=== PATIENT | female | born 1970 | race Hispanic/Latino ===

== ENCOUNTER 2023-07-18 16:09 | Inpatient (IN) | payer OTHER ==
[~2023-07-18] VITALS: Ht 149.9 cm; Wt 68.0 kg
[2023-07-18] MEDS ORDERED: SODIUM CHLORIDE 0.9% 1000ML 1,000 ML IV ONE (17:00)
[2023-07-18] MEDS ORDERED: SODIUM CHLORIDE 0.9% 1000ML 1,000 ML ONE ×2 (17:22→19:53)
[2023-07-18] MEDS: SODIUM CHLORIDE 0.9% 1000ML 1,000 ML IV SCH (19:52)
[2023-07-18 20:03] VITALS: BP 102/77; PULSE 92; RESP 16; TEMP 98.1; O2SAT 100
[2023-07-18 21:00] VITALS: BP 102/77; PULSE 92; RESP 16; TEMP 98.1; O2SAT 100
[2023-07-19] VITALS (9 sets, daily range): BP systolic 95–110; BP diastolic 70–82; PULSE 77–93; RESP 16–17; TEMP 97.5–98.4; O2SAT 97–100
[2023-07-19 02:10] LABS: CREATINE KINASE 540 IU/L (29-168)
[2023-07-19] MEDS: SODIUM CHLORIDE 0.9% 1000ML 1,000 ML IV SCH ×2 (06:08→09:45)
[2023-07-19 09:26] LABS: BASOPHILS % 0.5 % (0.0-1.0); EOSINOPHILS # (AUTO) 0.1 (0.0-0.4); EOSINOPHILS % 3.6 % (0.0-6.0); HEMATOCRIT 34.1 % (34.2-44.1); HEMOGLOBIN 11.5 g/dL (12.0-16.0); LYMPHOCYTES # (AUTO) 1.5 (1.0-3.2); MEAN CORPUSCULAR HEMOGLOBIN 27.9 pg (28-32); MEAN CORPUSCULAR HGB CONC 33.7 g/dL (31-35); MEAN CORPUSCULAR VOLUME 82.8 fL (81-99); MONOCYTES # (AUTO) 0.2 (0.2-0.8); NEUTROPHILS # (AUTO) 1.7 (2.1-6.9); NEUTROPHILS % 47.6 % (38.7-80.0); PLATELET COUNT 347 x10e3/uL (140-360); RED BLOOD COUNT 4.12 x10e6/uL (3.6-5.1); RED CELL DISTRIBUTION WIDTH 12.5 % (11.7-14.4); WHITE BLOOD COUNT 3.64 x10e3/uL (4.8-10.8)
[2023-07-19 09:45] LABS: CREATINE KINASE 586 IU/L (29-168)
[2023-07-19 10:10] LABS: ALBUMIN 3.6 g/dL (3.5-5.0); ALBUMIN/GLOBULIN RATIO 1.6 (0.8-2.0); ANION GAP 11.9 mmol/L (8-16); CALCIUM 8.9 mg/dL (8.4-10.2); CHOL/HDL RATIO 3.5 (3.0-3.6); CREATININE, SERUM 0.77 mg/dL (0.57-1.11); MAGNESIUM 1.9 MG/DL (1.3-2.1); PHOSPHORUS 3.2 MG/DL (2.3-4.7); POTASSIUM 3.9 mmol/L (3.5-5.1)
[2023-07-19] MEDS ORDERED: MELATONIN 3 MG TAB PO PRN (10:45)
[2023-07-19] MEDS ORDERED: DEXTROSE 50% SYRINGE 50 ML IV PRN (10:45)
[2023-07-19] MEDS ORDERED: SIMETHICONE 80 MG CHEW PO PRN (10:45)
[2023-07-19] MEDS ORDERED: ONDANSETRON HCL INJ 2MG/ML 2ML 2 MG/ML VIAL IV PRN (10:45)
[2023-07-19] MEDS ORDERED: DOCUSATE SODIUM 100 MG CAP PO PRN (10:45)
[2023-07-19 11:09] LABS: CHOL/HDL RATIO 3.4 (3.0-3.6)
[2023-07-19] MEDS: INSULIN REGULAR, HUMAN 100 UNIT/1 ML SQ SCH ×3 (11:30→20:06)
[2023-07-19] MEDS: MULTIVITAMINS/MINERALS TAB PO SCH (11:36)
[2023-07-19] MEDS: SODIUM CHLORIDE 0.45% 1,000 ML IV SCH ×2 (11:36→16:30)
[2023-07-19] MEDS: ACETAMINOPHEN 325 MG TAB PO PRN (21:15)
[2023-07-20] VITALS (9 sets, daily range): BP systolic 90–130; BP diastolic 66–87; PULSE 74–86; RESP 15–18; TEMP 97.5–98.5; O2SAT 98–100
[2023-07-20] MEDS: SODIUM CHLORIDE 0.45% 1,000 ML IV SCH ×4 (01:50→20:25)
[2023-07-20 05:01] LABS: EOSINOPHILS # (AUTO) 0.2 (0.0-0.4); EOSINOPHILS % 4.1 % (0.0-6.0); HEMATOCRIT 34.6 % (34.2-44.1); HEMOGLOBIN 11.8 g/dL (12.0-16.0); LYMPHOCYTES % 51.3 % (18.0-39.1); MEAN CORPUSCULAR HEMOGLOBIN 28.2 pg (28-32); MEAN CORPUSCULAR HGB CONC 34.1 g/dL (31-35); MEAN CORPUSCULAR VOLUME 82.8 fL (81-99); MONOCYTES # (AUTO) 0.2 (0.2-0.8); MONOCYTES % 6.2 % (4.4-11.3); NEUTROPHILS # (AUTO) 1.4 (2.1-6.9); NEUTROPHILS % 36.9 % (38.7-80.0); PLATELET COUNT 333 x10e3/uL (140-360); RED BLOOD COUNT 4.18 x10e6/uL (3.6-5.1); RED CELL DISTRIBUTION WIDTH 12.3 % (11.7-14.4)
[2023-07-20 05:25] LABS: ANION GAP 11.9 mmol/L (8-16); CALCIUM 8.7 mg/dL (8.4-10.2); CREATININE, SERUM 0.69 mg/dL (0.57-1.11); POTASSIUM 3.9 mmol/L (3.5-5.1)
[2023-07-20 05:35] LABS: FREE THYROXINE INDEX 2.6176 (1.4-3.8); THYROID STIMULATING HORMONE 2.044 uIU/mL (0.350-4.940)
[2023-07-20] MEDS: INSULIN REGULAR, HUMAN 100 UNIT/1 ML SQ SCH ×4 (07:30→21:00)
[2023-07-20] MEDS ORDERED: SODIUM CHLORIDE 0.9% 1000ML 1,000 ML IV ONE (08:45)
[2023-07-20] MEDS: MULTIVITAMINS/MINERALS TAB PO SCH (09:03)
[2023-07-20] MEDS: TOLTERODINE TARTRATE 2 MG TAB PO SCH ×2 (09:03→15:42)
[2023-07-20] MEDS ORDERED: ONDANSETRON HCL 4 MG ORAL DISINTEGRATING TAB PO PRN (09:30)
[2023-07-20] MEDS ORDERED: SODIUM CHLORIDE 0.9% 500ML 500 ML IV ONE (09:45)
[2023-07-20] MEDS: MECLIZINE HCL 12.5 MG TAB PO SCH ×2 (15:42→22:30)
[2023-07-20] MEDS: ACETAMINOPHEN 325 MG TAB PO PRN (20:26)
[2023-07-21] VITALS: BP 103/70; PULSE 89; RESP 16; TEMP 98.4; O2SAT 99
[2023-07-21] MEDS: SODIUM CHLORIDE 0.45% 1,000 ML IV SCH ×2 (02:24→09:20)
[2023-07-21 03:45] VITALS: BP 110/80; PULSE 87; RESP 16; TEMP 97.9; O2SAT 99
[2023-07-21 05:41] LABS: EOSINOPHILS # (AUTO) 0.2 (0.0-0.4); EOSINOPHILS % 4.8 % (0.0-6.0); HEMATOCRIT 33.2 % (34.2-44.1); HEMOGLOBIN 11.6 g/dL (12.0-16.0); LYMPHOCYTES # (AUTO) 1.9 (1.0-3.2); LYMPHOCYTES % 46.5 % (18.0-39.1); MEAN CORPUSCULAR HEMOGLOBIN 28.5 pg (28-32); MEAN CORPUSCULAR HGB CONC 34.9 g/dL (31-35); MEAN CORPUSCULAR VOLUME 81.6 fL (81-99); MONOCYTES # (AUTO) 0.3 (0.2-0.8); NEUTROPHILS # (AUTO) 1.6 (2.1-6.9); NEUTROPHILS % 39.4 % (38.7-80.0); PLATELET COUNT 353 x10e3/uL (140-360); RED BLOOD COUNT 4.07 x10e6/uL (3.6-5.1)
[2023-07-21] MEDS: MECLIZINE HCL 12.5 MG TAB PO SCH ×2 (05:49→13:38)
[2023-07-21 06:13] LABS: ANION GAP 9.3 mmol/L (8-16); CALCIUM 9.2 mg/dL (8.4-10.2); CREATININE, SERUM 0.73 mg/dL (0.57-1.11); POTASSIUM 4.3 mmol/L (3.5-5.1)
[2023-07-21] MEDS ORDERED: Multivitamins/Minerals PO (06:49)
[2023-07-21] MEDS ORDERED: DETROL2 MG PO (06:49)
[2023-07-21] MEDS ORDERED: Meclizine Hcl PO (06:49)
[2023-07-21] MEDS ORDERED: VERTICALM25 MG PO (06:50)
[2023-07-21] MEDS: INSULIN REGULAR, HUMAN 100 UNIT/1 ML SQ SCH ×2 (07:30→11:21)
[2023-07-21 08:00] VITALS: BP 110/65; PULSE 64; RESP 17; TEMP 98.2; O2SAT 98
[2023-07-21] MEDS: MULTIVITAMINS/MINERALS TAB PO SCH (09:09)
[2023-07-21] MEDS: TOLTERODINE TARTRATE 2 MG TAB PO SCH (09:09)
[2023-07-21 12:00] VITALS: BP 128/65; PULSE 66; RESP 17; RESP 18; TEMP 98.3; TEMP 98.4; O2SAT 99
[2023-07-21 13:30] VITALS: BP 128/65; PULSE 66
[2023-07-21] MEDS ORDERED: METOPROLOL SUCCINATE 25 MG TAB XL PO ONE (13:30)
[2023-07-22] MEDS ORDERED: METOPROLOL SUCCINATE 25 MG TAB XL PO SCH (09:00)
== END 2023-07-21 14:13 | disposition home or self-care (01) | DRG 149 ==
LOC: FSED 16:24 → ERHOLD 17:38 → MED/SURG 20:05 → OBSVTOIN 07-20 09:09
PROVIDERS: ADMIT Internal Medicine; ATTEND Internal Medicine
DX: H81.10 Benign paroxysmal vertigo, unspecified ear (principal); M62.82 Rhabdomyolysis; R55 Syncope and collapse; E86.0 Dehydration; D72.819 Decreased white blood cell count, unspecified; E66.9 Obesity, unspecified; Z68.30 Body mass index [BMI] 30.0-30.9, adult; N95.9 Unspecified menopausal and perimenopausal disorder; R00.2 Palpitations; E78.5 Hyperlipidemia, unspecified; R73.03 Prediabetes; Z91.041 Radiographic dye allergy status; Z20.822 Contact with and (suspected) exposure to COVID-19
CPT/HCPCS: 36415; 70450; 80048; 80053; 80061; 80307; 81003; 82550; 82553; 82948; 83036; 83735; 84100; 84436; 84443; 84479; 84484; 85025; 93005; 99284; G0378; J7030; J7040; U0002